=== PATIENT | male | born 1980 | race Caucasian/White ===

== ENCOUNTER 2019-01-29 20:59 | Emergency (ER) | payer OTHER | END 2019-01-29 22:36 | disposition home or self-care (01) | LOC: EDH 20:59 | DX: S60.552A Superficial foreign body of left hand, initial encounter (principal); Z87.442 Personal history of urinary calculi; Z72.0 Tobacco use; X58.XXXA Exposure to other specified factors, initial encounter; Y93.89 Activity, other specified; Y92.89 Other specified places as the place of occurrence of the external cause; Y99.8 Other external cause status | CPT/HCPCS: 10120; 73130 ==